=== PATIENT | male | born 2000 | race Caucasian/White ===

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

== ENCOUNTER 2022-10-08 10:48 | Emergency (ER) | payer OTHER ==
[~2022-10-08] VITALS: Ht 180.3 cm; Wt 73.5 kg
[2022-10-08 11:00] VITALS: BP 120/70
--- NOTE | 2022-10-08 11:17 | NUR ---
21 Y/O MALE BIB MOTHER C/O COLD S/SX8 DAYS,COUGH, RUNNY NOSE, SORE THROAT, AND YAN. TAKING NIQUIL. DENIES PAIN AT THIS TIME, RESPIRATIONS EVEN AND UNLABORED. DENIES USE OF INHALER, PT STATES THAT HE NEEDS A REFILL NKA PMH: ASTHMA
[2022-10-08] MEDS ORDERED: ALBU0.0912 IH (12:16)
[2022-10-08] MEDS ORDERED: PRED20TA5 PO (12:16)
--- NOTE | 2022-10-08 12:31 | NUR ---
Patient discharged with v/s stable. Written and verbal after care instructions FOR ACUTE BRONCHITIS given and explained. Patient alert, oriented and verbalized understanding of instructions. Ambulatory with steady gait. All questions addressed prior to discharge. ID band removed. Patient advised to follow up with PMD. Rx of PREDNISONE AND ALBUTEROL SULFATE given. Opportunity to ask questions provided and answered.
== END 2022-10-08 12:31 | disposition home or self-care (01) ==
LOC: MED 10:48
DX: J20.9 Acute bronchitis, unspecified (principal); J45.909 Unspecified asthma, uncomplicated; Z79.899 Other long term (current) drug therapy
CPT/HCPCS: 71045; 99283